=== PATIENT | male | born 1955 | race Caucasian/White ===

== ENCOUNTER 2025-02-06 09:09 | Emergency (ER) | payer MEDICAID ==
[~2025-02-06] VITALS: Ht 167.6 cm; Wt 72.0 kg
[2025-02-06 09:12] VITALS: BP 174/91; PULSE 75; RESP 18; TEMP 98; O2SAT 98
[2025-02-06] MEDS: TETANUS, DIPHTHERIA, PERTUSSIS VAC/PF 0.5ML (>10YR OLD) IM ONE (10:30)
[2025-02-06] MEDS: BACITRACIN ZINC OINT UDPKT TOP ONE (10:37)
== END 2025-02-06 15:50 | disposition home or self-care (01) ==
LOC: ER 10:00 → EDBD 10:00 → ER 15:50
DX: S02.2XXA Fracture of nasal bones, initial encounter for closed fracture (principal); S09.8XXA Other specified injuries of head, initial encounter; F19.129 Other psychoactive substance abuse with intoxication, unspecified; W19.XXXA Unspecified fall, initial encounter; Y93.89 Activity, other specified; Y92.89 Other specified places as the place of occurrence of the external cause; Y99.8 Other external cause status
CPT/HCPCS: 70450; 70486; 72125; 90715; 90471; 99285; Z7610